=== PATIENT | female | born 1980 | race Caucasian/White ===

== ENCOUNTER 2018-07-14 17:16 | Emergency (ER) | payer OTHER ==
[~2018-07-14] VITALS: Ht 175.3 cm; Wt 93.4 kg
[~2018-07-14 17:16] MED LIST: AUGMENTIN 875875 MG PO; IBUPROFEN 800800 M1; XANAX 0.5 MG0.5 MG PO
[2018-07-14] MEDS ORDERED: TYLENOL EXTRA500 MG PO (17:39)
[2018-07-14] MEDS ORDERED: IBUPROFEN 800800 M1 PO (17:39)
[2018-07-14] MEDS ORDERED: MEDROLDOSEPACK PO (18:12)
[2018-07-14] MEDS ORDERED: NABUMETONE 750750 M1 PO (18:12)
[2018-07-14] MEDS ORDERED: FLEXERIL PO (18:12)
[2018-07-14] MEDS ORDERED: NORCO 5-325 TA1 EACH PO (18:12)
[2018-07-14 18:33] VITALS: BP 135/85
== END 2018-07-14 18:36 | disposition home or self-care (01) ==
LOC: M.ERS 17:16
DX: M54.16 Radiculopathy, lumbar region (principal); M54.5 Low back pain; G89.29 Other chronic pain; F17.200 Nicotine dependence, unspecified, uncomplicated

== ENCOUNTER 2018-11-04 16:42 | Emergency (ER) | payer OTHER ==
[~2018-11-04] VITALS: Ht 175.3 cm; Wt 83.9 kg
[~2018-11-04 16:42] MED LIST changes: +FLEXERIL PO; +IBUPROFEN 800800 M1 PO; +MEDROLDOSEPACK PO; +NABUMETONE 750750 M1 PO; +NORCO 5-325 TA1 EACH PO; +TYLENOL EXTRA500 MG PO
[2018-11-04 16:46] VITALS: BP 147/95
[2018-11-04] MEDS ORDERED: ZPAK PO (17:01)
[2018-11-04] MEDS ORDERED: PREDNISONE 20 M20 M1 PO (17:01)
[2018-11-04] MEDS ORDERED: ACETAMINOPHEN-1 EAC1 PO (17:01)
== END 2018-11-04 17:05 | disposition home or self-care (01) ==
LOC: M.ERS 16:42
DX: J20.9 Acute bronchitis, unspecified (principal); G89.29 Other chronic pain; M54.9 Dorsalgia, unspecified; F17.200 Nicotine dependence, unspecified, uncomplicated

== ENCOUNTER 2019-01-09 20:20 | Emergency (ER) | payer OTHER ==
[~2019-01-09] VITALS: Ht 175.3 cm; Wt 81.7 kg
[~2019-01-09 20:20] MED LIST changes: +ACETAMINOPHEN-1 EAC1 PO; +PREDNISONE 20 M20 M1 PO; +ZPAK PO
[2019-01-09] MEDS ORDERED: NORCO 5-325 TA1 EAC1 PO (21:21)
[2019-01-09] MEDS ORDERED: NAPROSYN500 MG PO (21:21)
[2019-01-09] MEDS ORDERED: FLEXERIL PO (21:21)
[2019-01-09 22:08] VITALS: BP 173/100
== END 2019-01-09 22:11 | disposition home or self-care (01) ==
LOC: M.ERS 20:20
DX: M54.16 Radiculopathy, lumbar region (principal); G89.29 Other chronic pain; M54.5 Low back pain

== ENCOUNTER 2019-02-15 20:59 | Emergency (ER) | payer OTHER ==
[~2019-02-15] VITALS: Ht 175.3 cm; Wt 90.7 kg
[~2019-02-15 20:59] MED LIST changes: +NAPROSYN500 MG PO; +NORCO 5-325 TA1 EAC1 PO
[2019-02-15] MEDS ORDERED: ZPAK PO (21:26)
[2019-02-15] MEDS ORDERED: TESSALON PERLE100 MG PO (21:26)
[2019-02-15] MEDS ORDERED: MEDROL DOSPAK21 TA1 PO (21:26)
[2019-02-15 21:58] VITALS: BP 189/75
== END 2019-02-15 21:58 | disposition home or self-care (01) ==
LOC: M.ERS 20:59
DX: J06.9 Acute upper respiratory infection, unspecified (principal)

== ENCOUNTER 2019-08-15 07:55 | Emergency (ER) | payer OTHER ==
[~2019-08-15] VITALS: Ht 175.3 cm; Wt 81.7 kg
[~2019-08-15 07:55] MED LIST changes: +MEDROL DOSPAK21 TA1 PO; +TESSALON PERLE100 MG PO
[2019-08-15] MEDS ORDERED: AMOXICILLIN875 MG PO (08:59)
[2019-08-15] MEDS ORDERED: PROMETHAZINE-C473 ML PO (08:59)
[2019-08-15 09:06] VITALS: BP 142/90
== END 2019-08-15 09:06 | disposition home or self-care (01) ==
LOC: M.ERS 07:55
DX: J32.9 Chronic sinusitis, unspecified (principal)

== ENCOUNTER 2020-04-18 22:04 | Emergency (ER) | payer OTHER ==
[~2020-04-18] VITALS: Ht 175.3 cm; Wt 90.7 kg
[~2020-04-18 22:04] MED LIST changes: +AMOXICILLIN875 MG PO; +PROMETHAZINE-C473 ML PO
[2020-04-18] MEDS ORDERED: ZANAFLEX4 M1 PO (22:24)
[2020-04-18] MEDS ORDERED: ZYRTEC10 M5 PO (22:24)
[2020-04-18] MEDS ORDERED: BENADRYL25 MG PO (22:25)
[2020-04-18] MEDS ORDERED: NORCO 5-325 TA1 EAC2 PO (22:28)
[2020-04-18] MEDS ORDERED: MEDROLDOSEPACK PO (22:28)
[2020-04-18] MEDS ORDERED: FLEXERIL PO (22:28)
[2020-04-18 22:35] VITALS: BP 153/97
== END 2020-04-18 22:35 | disposition home or self-care (01) ==
LOC: M.ERS 22:04
DX: M54.5 Low back pain (principal)

== ENCOUNTER 2020-07-13 14:08 | Emergency (ER) | payer OTHER ==
[~2020-07-13] VITALS: Ht 177.8 cm; Wt 83.9 kg
[~2020-07-13 14:08] MED LIST changes: +BENADRYL25 MG PO; +NORCO 5-325 TA1 EAC2 PO; +ZANAFLEX4 M1 PO; +ZYRTEC10 M5 PO
[2020-07-13 14:17] VITALS: BP 147/96
[2020-07-13] MEDS ORDERED: ADDERALL 10 MG10 MG PO (14:21)
[2020-07-13] MEDS ORDERED: HYDROCODON-ACE1 EAC7 PO (14:48)
[2020-07-13] MEDS ORDERED: MEDROLDOSEPACK PO (14:54)
== END 2020-07-13 15:08 | disposition home or self-care (01) ==
LOC: M.ERS 14:08
DX: M25.511 Pain in right shoulder (principal); Z79.899 Other long term (current) drug therapy